=== PATIENT | female | born 2000 | race Caucasian/White ===

== ENCOUNTER 2018-05-19 17:01 | Emergency (ER) | payer MEDICAID ==
[~2018-05-19] VITALS: Ht 157.5 cm; Wt 46.8 kg
[2018-05-19 17:02] VITALS: BP 125/81
[2018-05-19] MEDS ORDERED: HYDR-4383 PO (17:50)
== END 2018-05-19 18:05 | disposition home or self-care (01) ==
LOC: ER 17:01
DX: K08.89 Other specified disorders of teeth and supporting structures (principal)
CPT/HCPCS: 99283

== ENCOUNTER 2018-10-30 10:48 | Emergency (ER) | payer MEDICAID ==
[~2018-10-30] VITALS: Ht 157.5 cm; Wt 47.6 kg
[~2018-10-30 10:48] MED LIST: HYDR-4383 PO
[2018-10-30] MEDS ORDERED: IBUP-1986 PO (11:07)
[2018-10-30] MEDS ORDERED: ibuprofen tablet 400 MG TABLET PO ONE (11:10)
[2018-10-30] MEDS ORDERED: acetaminophen 325mg tablet PO ONE (11:10)
[2018-10-30 11:17] VITALS: BP 105/60
== END 2018-10-30 11:22 | disposition home or self-care (01) ==
LOC: ER 10:49
DX: R59.1 Generalized enlarged lymph nodes (principal); Z79.899 Other long term (current) drug therapy
CPT/HCPCS: 99283

== ENCOUNTER 2022-11-27 10:10 | Emergency (ER) | payer MEDICAID ==
[~2022-11-27] VITALS: Ht 157.5 cm; Wt 54.5 kg
[~2022-11-27 10:10] MED LIST changes: +IBUP-1986 PO
[2022-11-27] MEDS ORDERED: normal saline 1000ML IV soln IVB ONE (11:10)
[2022-11-27] MEDS ORDERED: morphine 4 MG/ML inj SYRINge IV ONE (11:10)
[2022-11-27] MEDS ORDERED: ondansetron/PF 4mg/2ml inj IV ONE (11:10)
--- NOTE | 2022-11-27 11:10 | NUR ---
PT NAUSEATED WITH DRY HEAVES. ZOFRAN 4 MG IV GIVEN.
[2022-11-27 11:12] LABS: BASOPHILS % (AUTO) 0.3 % (0-1); EOSINOPHILS # (AUTO) 0.1 X10'3 (0-0.9); EOSINOPHILS % (AUTO) 0.8 % (0-6); HEMATOCRIT 38.5 % (35.0-45.0); HEMOGLOBIN 12.9 g/dl (12.0-16.0); LYMPHOCYTES # (AUTO) 1.4 X10'3 (1.1-4.8); LYMPHOCYTES % (AUTO) 13.3 % (21-51); MEAN CORPUSCULAR HEMOGLOBIN 28.9 PG (27.0-31.0); MEAN CORPUSCULAR HGB CONC 33.6 g/dL (33.0-36.5); MEAN CORPUSCULAR VOLUME 86.3 FL (78-98); MONOCYTES # (AUTO) 0.3 X10'3 (0-0.9); MONOCYTES % (AUTO) 3.2 % (2-12); NEUTROPHILS # (AUTO) 8.5 X10'3 (1.8-7.7); NEUTROPHILS % (AUTO) 82.4 % (42-75); PLATELET COUNT 162 X10'3 (140-440); RED BLOOD COUNT 4.47 X10'6 (4.20-5.60); RED CELL DISTRIBUTION WIDTH 13.5 % (11.5-14.5); WHITE BLOOD COUNT 10.3 X10'3 (4.5-11.0)
[2022-11-27 11:35] LABS: ALANINE AMINOTRANSFERASE 12 U/L (12-78); ALBUMIN 3.5 G/DL (3.4-5.0); ALBUMIN/GLOBULIN RATIO 0.9 (1.1-1.5); ALKALINE PHOSPHATASE 36 IU/L (46-116); ANION GAP 12 (8-16); ASPARTATE AMINO TRANSFERASE 12 U/L (10-37); BILIRUBIN,TOTAL 0.4 MG/DL (0.1-1.0); BLOOD UREA NITROGEN 13 MG/DL (7-18); BUN/CREATININE RATIO 18.3 (10.0-20.0); CHLORIDE 103 MMOL/L (99-107); CREATININE 0.71 MG/DL (0.40-0.90); GLUCOSE 131 MG/DL (70-104); LIPASE 75 U/L (73-393); POTASSIUM 3.2 MMOL/L (3.5-5.1); SODIUM 138 MMOL/L (135-145); TOTAL PROTEIN 7.3 G/DL (6.4-8.2); eGFR > 90 ML/MIN
[2022-11-27 11:52] LABS: CLARITY,URINE SLIGHTLY CLOUDY (Clear); COLOR,URINE YELLOW (Yellow); GLUCOSE, URINE NEGATIVE (Neg); KETONES,URINE 40 mg/dl (Neg); LEUKOCYTE ESTERASE ,URINE NEGATIVE (Neg); NITRITES, URINE NEGATIVE (Neg); OCCULT BLOOD,URINE SMALL (Neg); PROTEIN,URINE NEGATIVE (Neg); UROBILINOGEN,URINE 0.2 E.U/dL (0.2-1.0)
[2022-11-27 11:53] LABS: URINE HCG NEGATIVE (NEG)
[2022-11-27 11:59] LABS: UA COLLECTION TYPE STRAIGHT CATH
[2022-11-27 12:03] LABS: MUCUS STRANDS MANY /LPF (Neg); SQUAMOUS EPITHELIAL CELL,UR FEW /LPF (FEW)
[2022-11-27 12:04] LABS: BACTERIA,URINE FEW /HPF (Neg); WBC,URINE 0-4 /HPF (0-4)
[2022-11-27] MEDS: morphine 2 MG/ML inj. syringe IV PRN ×2 (12:10→13:49)
--- NOTE | 2022-11-27 12:13 | NUR ---
PT DENIES NAUSEA OR VOMITING AT THIS TIME.
[2022-11-27] MEDS ORDERED: iohexol 300mg/ml 100ml inj. ONE (12:27)
[2022-11-27] MEDS ORDERED: tamsulosin 0.4mg capsule PO SCH (13:20)
--- NOTE | 2022-11-27 13:20 | NUR ---
pt states, Pain is now a 4/10, mostly pressure but tolerable.
--- NOTE | 2022-11-27 13:21 | NUR ---
ok to give few ice chips to pt per dr. marie.
[2022-11-27] MEDS ORDERED: FLO0.4C PO (13:40)
[2022-11-27] MEDS ORDERED: ONDA8TAB13 PO (13:40)
[2022-11-27] MEDS ORDERED: HYDR-3965 PO (13:40)
--- NOTE | 2022-11-27 13:49 | NUR ---
MORPHINE [address] SIMMONS'S REQUEST
[2022-11-27 14:25] VITALS: BP 109/70
== END 2022-11-27 14:26 | disposition home or self-care (01) ==
LOC: ER 10:11
DX: N20.0 Calculus of kidney (principal)
CPT/HCPCS: 74177; 80053; 81001; 81025; 83690; 85025; 96361; 96374; 96375; 96376; 99285; J2270; J2405; J3490; J7030; Q9967; A4353

== ENCOUNTER 2023-04-06 23:52 | Emergency (ER) | payer MEDICAID ==
[~2023-04-06] VITALS: Ht 157.5 cm; Wt 56.8 kg
[~2023-04-06 23:52] MED LIST changes: +ONDA8TAB13 PO
[2023-04-07 00:39] LABS: URINE HCG NEGATIVE (NEG)
[2023-04-07 00:40] LABS: BILIRUBIN,URINE NEGATIVE (Neg); CLARITY,URINE SLIGHTLY CLOUDY (Clear); COLOR,URINE YELLOW (Yellow); GLUCOSE, URINE NEGATIVE (Neg); KETONES,URINE NEGATIVE (Neg); LEUKOCYTE ESTERASE ,URINE NEGATIVE (Neg); NITRITES, URINE NEGATIVE (Neg); OCCULT BLOOD,URINE MODERATE (Neg); PH,URINE 6.5 (4.8-8.0); PROTEIN,URINE NEGATIVE (Neg); UROBILINOGEN,URINE 0.2 E.U/dL (0.2-1.0)
[2023-04-07 00:42] LABS: UA COLLECTION TYPE CLN CATCH MIDSTREAM
[2023-04-07 00:45] LABS: BASOPHILS # (AUTO) 0.1 X10'3 (0-0.2); BASOPHILS % (AUTO) 0.9 % (0-1); EOSINOPHILS # (AUTO) 0.1 X10'3 (0-0.9); EOSINOPHILS % (AUTO) 1.6 % (0-6); HEMATOCRIT 37.4 % (35.0-45.0); HEMOGLOBIN 12.5 g/dl (12.0-16.0); LYMPHOCYTES # (AUTO) 2.5 X10'3 (1.1-4.8); LYMPHOCYTES % (AUTO) 31.8 % (21-51); MEAN CORPUSCULAR HEMOGLOBIN 28.3 PG (27.0-31.0); MEAN CORPUSCULAR HGB CONC 33.4 g/dL (33.0-36.5); MEAN CORPUSCULAR VOLUME 84.9 FL (78-98); MEAN PLATELET VOLUME 10.7 FL (7.4-10.4); MONOCYTES # (AUTO) 0.4 X10'3 (0-0.9); MONOCYTES % (AUTO) 5.5 % (2-12); NEUTROPHILS # (AUTO) 4.8 X10'3 (1.8-7.7); NEUTROPHILS % (AUTO) 60.2 % (42-75); PLATELET COUNT 164 X10'3 (140-440); RED CELL DISTRIBUTION WIDTH 14.3 % (11.5-14.5)
[2023-04-07 00:51] LABS: BACTERIA,URINE 2+ /HPF (Neg); RBC,URINE 20-50 /HPF (0-2); SQUAMOUS EPITHELIAL CELL,UR MODERATE /LPF (FEW); WBC,URINE 0-4 /HPF (0-4)
[2023-04-07 00:51] LABS: ALANINE AMINOTRANSFERASE 18 U/L (12-78); ALBUMIN 3.9 G/DL (3.4-5.0); ALKALINE PHOSPHATASE 47 IU/L (46-116); ANION GAP 7 (8-16); ASPARTATE AMINO TRANSFERASE 11 U/L (10-37); BILIRUBIN,TOTAL 0.3 MG/DL (0.1-1.0); BLOOD UREA NITROGEN 17 MG/DL (7-18); BUN/CREATININE RATIO 21.5 (10.0-20.0); CALCIUM 9.1 MG/DL (8.5-10.1); CHLORIDE 104 MMOL/L (99-107); CREATININE 0.79 MG/DL (0.40-0.90); GLUCOSE 124 MG/DL (70-104); POTASSIUM 3.4 MMOL/L (3.5-5.1); SODIUM 138 MMOL/L (135-145); TOTAL CARBON DIOXIDE 27.5 MMOL/L (24-32); TOTAL PROTEIN 7.7 G/DL (6.4-8.2); eCRCL 86 ML/MIN; eGFR 89 ML/MIN
[2023-04-07 00:52] LABS: MUCUS STRANDS MODERATE /LPF (Neg); RENAL CELLS, URINE FEW /HPF
[2023-04-07 00:53] LABS: LIPASE 36 U/L (16-77)
[2023-04-07 01:38] LABS: PLATELET ESTIMATE NORMAL
[2023-04-07 01:39] LABS: LARGE PLATELETS FEW
[2023-04-07] MEDS ORDERED: ONDA4TAB12 PO (02:12)
[2023-04-07] MEDS ORDERED: IBUP-1984 PO (02:12)
[2023-04-07] MEDS ORDERED: FLO0.4C PO (02:12)
[2023-04-07] MEDS ORDERED: HYDR-3965 PO (02:12)
[2023-04-07 02:25] VITALS: BP 128/59; PULSE 81; RESP 16; TEMP 98.7; O2SAT 99
== END 2023-04-07 02:27 | disposition home or self-care (01) ==
LOC: ER 23:53
DX: N20.0 Calculus of kidney (principal); F12.10 Cannabis abuse, uncomplicated; Z79.899 Other long term (current) drug therapy
CPT/HCPCS: 36415; 80053; 81001; 81025; 83690; 85008; 85025; 99283